=== PATIENT | female | born 1995 | race Caucasian/White ===

== ENCOUNTER 2016-07-08 20:55 | Emergency (ER) | payer SELFPAY ==
[~2016-07-08] VITALS: Ht 167.6 cm; Wt 54.4 kg
[~2016-07-08 20:55] MED LIST: GUMMY VITAMIN PO; MOTRIN800 MG PO
[2016-07-08 21:00] VITALS: BP 123/62
--- NOTE | 2016-07-08 21:38 | NUR ---
AMBULATED TO ER BED 6
--- NOTE | 2016-07-08 21:51 | NUR ---
PT C/O RT ABD PAIN, N/V WITH BLOOD, DIRRHEA, FOOT SWLLING X 2 DAYS. PT STATES MEDCIAL HX OF HTN, NO HOME MEDS. PT STATES TAKING IBUPROFEN WITH NO RELIEF. . PT has N/V/D; SKIN IS PINK/WARM/DRY; AAOX4 WITH EVEN AND STEADY GAIT; LUNGS CLEAR BL; HR EVEN AND REGULAR; PT DENIES ANY FEVER, CP, SOB, OR COUGH AT THIS TIME; PATIENT STATES PAIN OF 10/10 AT THIS TIME; VSS; PATIENT POSITIONED FOR COMFORT; HOB ELEVATED; BEDRAILS UP X2; BED DOWN. ER MD MADE AWARE OF PT STATUS.
--- NOTE | 2016-07-08 21:52 | NUR ---
dr downs at bedside
[2016-07-08] MEDS ORDERED: KETOROLAC 30 MG/ML VIAL IVP ONE (22:00)
[2016-07-08] MEDS ORDERED: ONDANSETRON 4 MG/2 ML VIAL IVP ONE (22:00)
[2016-07-08] MEDS ORDERED: NACL 0.9% 1,000 ML IV ONE (22:00)
[2016-07-08] MEDS ORDERED: HYDROmorphone 1 MG/ML AMP IVP ONE (23:20)
[2016-07-08] MEDS ORDERED: METOCLOPRAMIDE 10 MG/2 ML INJ VIAL IVP ONE (23:20)
--- NOTE | 2016-07-09 00:30 | NUR ---
dilaudid with good effect, pt states no longer has pain.
--- NOTE | 2016-07-09 00:51 | NUR ---
dr downs made aware that pt no longer has a ride home. iv pain meds were given. pt informed she would need to stay at least until 4am in the lobby to be safe for driving. pt states she understands and will continue to try and get another ride home.
--- NOTE | 2016-07-09 01:56 | NUR ---
pt states her aunt will be here at 230am to pick her up.
[2016-07-09 02:26] VITALS: BP 121/64
--- NOTE | 2016-07-09 02:26 | NUR ---
Patient discharged with v/s stable. Written and verbal after care instructions given and explained. MOTHER ROBYN CAME AND PICKED PATIENT UP TO D/C HOME. PATIENT VERBALIZED UNDERSTANDING THAT SHE CANNOT DRIVE. PATIENT AND MOTHER SIGNED D/C INSTRUCTIONS. Patient alert, oriented and verbalized understanding of instructions. Ambulatory with steady gait. All questions addressed prior to discharge. ID band removed. Patient advised to follow up with PMD. Rx of TRAMADOL 50MG AND ZOFRAN ODT 8MG given. Patient educated on indication of medication including possible reaction and side effects. Opportunity to ask questions provided and answered.
== END 2016-07-09 02:26 | disposition home or self-care (01) ==
LOC: MED 21:09
DX: R10.84 Generalized abdominal pain (principal); R11.2 Nausea with vomiting, unspecified; I10 Essential (primary) hypertension
CPT/HCPCS: 81002; 81025; 96361; 96374; 96375; 99284; J1170; J1885; J2405; J2765; J7030

== ENCOUNTER 2016-11-24 22:43 | Emergency (ER) | payer SELFPAY ==
[~2016-11-24] VITALS: Ht 167.6 cm; Wt 54.4 kg
[~2016-11-24 22:43] MED LIST changes: +IBUP-974 PO; -MOTRIN800 MG PO
[2016-11-24 22:45] VITALS: BP 115/77
--- NOTE | 2016-11-24 23:09 | NUR ---
PT TAKEN TO BED 8
--- NOTE | 2016-11-24 23:25 | NUR ---
PA STUDENT BRADLEY LOPEZ
--- NOTE | 2016-11-24 23:29 | NUR ---
Dr. Unger evaluating patient at bedside.
--- NOTE | 2016-11-24 23:41 | NUR ---
21Y/F PATIENT PRESENTS TO ED WITH C/O ABDOMINAL PAIN X 2 DAYS . PT STATES PAIN TO RLQ ABDOMEN X 2 DAYS WITH N/V/D, NO FEVER; SKIN IS PINK/WARM/DRY; AAOX4 WITH EVEN AND STEADY GAIT; LUNGS CLEAR BL; HR EVEN AND REGULAR; PT DENIES ANY FEVER, CP, SOB, OR COUGH AT THIS TIME; PATIENT STATES PAIN OF 10/10 AT THIS TIME; VSS; PATIENT POSITIONED FOR COMFORT; HOB ELEVATED; BEDRAILS UP X2; BED DOWN. ER MD MADE AWARE OF PT STATUS.
[2016-11-24] MEDS ORDERED: ONDANSETRON 4 MG ODT PO ONE (23:45)
[2016-11-24] MEDS ORDERED: KETOROLAC 30 MG/ML VIAL IM ONE (23:45)
[2016-11-24 23:57] LABS: BASOPHILS # (AUTO) 0.3 K/uL (0.00-0.22); BASOPHILS % (AUTO) 4.5 % (0.0-2.0); EOSINOPHILS # (AUTO) 0.2 K/uL (0-0.4); EOSINOPHILS % (AUTO) 2.2 % (0.0-4.0); HEMATOCRIT 41.6 % (36-48); HEMOGLOBIN 13.7 g/dL (12.0-16.0); LYMPHOCYTES # (AUTO) 1.4 K/uL (2.5-16.5); LYMPHOCYTES % (AUTO) 20.7 % (20.5-51.1); MEAN CORPUSCULAR HEMOGLOBIN 30 pg (27-31); MEAN CORPUSCULAR HGB CONC 33 g/dL (33-37); MEAN CORPUSCULAR VOLUME 90 fL (80-94); MONOCYTES # (AUTO) 0.7 K/uL (0.8-1.0); MONOCYTES % (AUTO) 10.2 % (1.7-9.3); NEUTROPHILS # (AUTO) 4.3 K/uL (1.8-7.7); NEUTROPHILS % (AUTO) 62.4 % (42.2-75.2); PLATELET COUNT (AUTO) 259 K/uL (140-450); RED BLOOD CELL COUNT(AUTO) 4.63 MIL/uL (4.20-5.40); WHITE BLOOD COUNT (AUTO) 6.9 K/uL (4.8-10.8)
[2016-11-24 23:57] LABS: APPEARANCE,URINE SL CLOUDY (CLEAR); BILIRUBIN,URINE NEGATIVE (NEGATIVE); BLOOD, URINE TRACE-I (NEGATIVE); COLOR,URINE YELLOW (YELLOW); LEUKOCYTE ESTERASE ,URINE 3+ (NEGATIVE); NITRITE, URINE NEGATIVE (NEGATIVE); PH,URINE 6.5 (5.0-9.0); PROTEIN,URINE NEGATIVE (NEGATIVE); UGLUCOSE NEGATIVE (NEGATIVE)
[2016-11-25 00:08] LABS: BACTERIA,URINE 3+ /HPF (None Seen); RBC,URINE 3-10 (FEW) /HPF (0-5); SQUAMOUS EPITHELIAL CELL,UR 4-10 (MOD) /LPF (0-3 (FEW)); WBC,URINE 60-80 /HPF (0-5)
[2016-11-25 00:12] LABS: ALBUMIN 3.8 g/dL (3.4-5.0); ANION GAP 10.7 (8-16); CALCIUM 8.7 mg/dL (8.5-10.1); CARBON DIOXIDE 30.1 mmol/L (21-32); CREATININE 0.7 mg/dL (0.6-1.3); POTASSIUM 3.8 mmol/L (3.5-5.1); TOTAL BILIRUBIN 0.3 mg/dL (0.0-1.0); TOTAL PROTEIN, SERUM 8.1 g/dL (6.4-8.2)
[2016-11-25] MEDS ORDERED: cefTRIAXone 1,000 MG in LIDOCAINE 1% ED 2.1 ML IM ONE (00:20)
[2016-11-25 01:10] VITALS: BP 120/87
--- NOTE | 2016-11-25 01:11 | NUR ---
Patient discharged with v/s stable. Written and verbal after care instructions given and explained. Patient alert, oriented and verbalized understanding of instructions. Ambulatory with steady gait. All questions addressed prior to discharge. ID band removed. Patient advised to follow up with PMD. Rx of TYLENOL WITH CODEINE #3, PHENAZOPYRIDINE 100MG TID, COPRO 500MG BID given. Patient educated on indication of medication including possible reaction and side effects. Opportunity to ask questions provided and answered.
== END 2016-11-25 01:11 | disposition home or self-care (01) ==
LOC: MED 22:43
DX: N39.0 Urinary tract infection, site not specified (principal); I10 Essential (primary) hypertension
CPT/HCPCS: 36415; 80053; 81001; 81025; 83690; 85025; 87086; 96372; 99284; J0696; J1885; J2001; S0119

== ENCOUNTER 2016-11-26 19:04 | Emergency (ER) | payer SELFPAY ==
[~2016-11-26] VITALS: Ht 167.6 cm; Wt 58.5 kg
[2016-11-26 19:39] VITALS: BP 142/88
--- NOTE | 2016-11-26 20:44 | NUR ---
TO ER BED 7
[2016-11-26] MEDS ORDERED: ONDANSETRON 4 MG/2 ML VIAL IVP ONE (20:50)
[2016-11-26] MEDS ORDERED: NACL 0.9% 1,000 ML IV ONE (20:50)
--- NOTE | 2016-11-26 21:40 | NUR ---
21 Y/O F W/C/O ABD PAIN, N/V, HEADACHES AND FEVER X 2 DAYS. PT STATES WAS SEEN HERE [facility] NIGHT AND DIAGNOSED WITH UTI, AND TX BUT SHE IS FEELING SICK. PT SKIN IS PINK/WARM/DRY; AAOX4 WITH EVEN AND STEADY GAIT; LUNGS CLEAR BL; HR EVEN AND REGULAR; PT DENIES ANY CP, SOB, OR COUGH AT THIS TIME; PATIENT STATES PAIN OF 10/10 AT THIS TIME; VSS; PATIENT POSITIONED FOR COMFORT; HOB ELEVATED; BEDRAILS UP X2; BED DOWN. ER MD MADE AWARE OF PT STATUS.
[2016-11-26] MEDS ORDERED: fentaNYL 0.05 MG/ML VIAL IVP ONE (21:55)
[2016-11-26 22:24] VITALS: BP 123/78
--- NOTE | 2016-11-26 22:26 | NUR ---
Patient discharged with v/s stable. Written and verbal after care instructions given and explained. Patient alert, oriented and verbalized understanding of instructions. Ambulatory with steady gait. All questions addressed prior to discharge. ID band removed. Patient advised to follow up with PMD. Rx of NORCO 5MG-325MG Q4HRS PRN, MACROBID 100MG TID, PYRIDIUM 200MG TID given. Patient educated on indication of medication including possible reaction and side effects. Opportunity to ask questions provided and answered.
== END 2016-11-26 22:24 | disposition home or self-care (01) ==
LOC: MED 19:04
DX: N39.0 Urinary tract infection, site not specified (principal); I10 Essential (primary) hypertension
CPT/HCPCS: 74176; 96361; 96374; 96375; 99284; J2405; J3010; J7030

== ENCOUNTER 2017-01-16 21:38 | Emergency (ER) | payer SELFPAY ==
[~2017-01-16] VITALS: Ht 167.6 cm; Wt 61.2 kg
[2017-01-16 22:02] VITALS: BP 141/86
--- NOTE | 2017-01-17 00:35 | NUR ---
TO ER OF3
--- NOTE | 2017-01-17 00:49 | NUR ---
Patient being evaluated by physician.
[2017-01-17] MEDS ORDERED: KETOROLAC 60 MG/2 ML VIAL IM ONE (01:00)
[2017-01-17 01:45] VITALS: BP 127/73
== END 2017-01-17 01:45 | disposition home or self-care (01) ==
LOC: MED 21:38
DX: R55 Syncope and collapse (principal); I10 Essential (primary) hypertension; Z79.899 Other long term (current) drug therapy
CPT/HCPCS: 70450; 93005; 96372; 99284; J1885; 99283